=== PATIENT | female | born 1990 | race Caucasian/White ===

== ENCOUNTER 2022-07-16 13:13 | Emergency (ER) | payer BC ==
[~2022-07-16] VITALS: Ht 157.5 cm; Wt 63.5 kg
== END 2022-07-16 21:09 | disposition home or self-care (01) ==
LOC: ER 13:13
DX: T50.905A Adverse effect of unspecified drugs, medicaments and biological substances, initial encounter (principal); Y92.9 Unspecified place or not applicable; F10.929 Alcohol use, unspecified with intoxication, unspecified; Z20.822 Contact with and (suspected) exposure to COVID-19

== ENCOUNTER → 2022-07-18 | Emergency (ER) | payer BC ==
[~2022-07-18] VITALS: Ht 172.7 cm; Wt 65.8 kg
== END | disposition home or self-care (01) ==
LOC: ER 15:31
DX: F10.129 Alcohol abuse with intoxication, unspecified (principal); R11.2 Nausea with vomiting, unspecified